=== PATIENT | male | born 1965 | race American Indian/Alaskan Native ===

== ENCOUNTER 2020-02-21 11:59 | Outpatient (CLI) | payer OTHER ==
--- NOTE | 2020-02-21 14:49 | XRay Report ---
CERVICAL SPINE 5 VIEWS INDICATION: Neck pain. COMPARISON: None. IMPRESSION: Normal alignment. No significant discogenic DJD or facet arthropathy. No acute osseous or soft tissue abnormality. LUMBOSACRAL SPINE 3 VIEWS INDICATION: M54.5 LOW BACK PAIN. COMPARISON: None. IMPRESSION: Normal alignment. Moderate to severe discogenic disc disease is identified at L5-S1. Th ere is mild to moderate diffuse facet arthropathy. No acute osseous or soft tissue abnormality. LEFT KNEE 3 VIEWS INDICATION: M54.5 LOW BACK PAIN. COMPARISON: None. IMPRESSION: No acute osseous or soft tissue abnormality. Mild medial compartment and patellofemor al space degenerative changes are noted. Small joint effusion is identified on the lateral image. Signer Name: Fredy Johnson Jr, MD Signed: 02/21/2020 2:45 PM Workstation Name: [id number]
== END 2020-02-21 12:00 | disposition home or self-care (01) ==
LOC: XRAY 11:59
PROVIDERS: ATTEND Orthopaedic Surgery
DX: M17.12 Unilateral primary osteoarthritis, left knee (principal); M25.462 Effusion, left knee; M51.37 Other intervertebral disc degeneration, lumbosacral region; M47.817 Spondylosis without myelopathy or radiculopathy, lumbosacral region
CPT/HCPCS: 72040; 72110